=== PATIENT | male | born 1990 | race Hispanic/Latino ===

== ENCOUNTER 2023-12-23 17:52 | Inpatient (IN) | payer OTHER ==
[~2023-12-23] VITALS: Ht 172.7 cm; Wt 55.0 kg
[2023-12-23 18:26] LABS: APPEARANCE,URINE CLEAR (CLEAR); BILIRUBIN,URINE NEGATIVE (NEGATIVE); GLUCOSE, URINE (UA) >=1000 mg/dL (NEGATIVE); KETONES,URINE >=80 mg/dL (NEGATIVE); LEUKOCYTE ESTERASE ,URINE 250 Leu/uL (NEGATIVE); NITRATE,URINE NEGATIVE (NEGATIVE); OCCULT BLOOD,URINE NEGATIVE (NEGATIVE); PH,URINE 5.5 (5.0-8.0); PROTEIN,URINE NEGATIVE (NEGATIVE); UROBILINOGEN,URINE 0.2 mg/dL (0.2-1.0)
[2023-12-23 18:27] LABS: ADD UA MICROSCOPIC YES; COLOR,URINE LIGHT-YELLOW (YELLOW)
[2023-12-23 18:33] LABS: BACTERIA,URINE FEW /HPF (None Seen); MUCUS,URINE RARE LPF (None Seen); SQUAMOUS EPITHELIAL CELL,UR RARE /HPF (0-2)
[2023-12-23 18:37] LABS: BASOPHILS # (AUTO) 0.06 K/uL (0.00-0.20); BASOPHILS % (AUTO) 1.2 % (0.0-5.0); EOSINOPHILS # (AUTO) 0.04 K/uL (0.00-0.70); EOSINOPHILS % (AUTO) 0.8 % (0.0-8.0); HEMATOCRIT 49.6 % (42-54); IMMATURE GRANULOCYTE ABSOLUTE 0.02 K/uL (0-1); LYMPHOCYTES # (AUTO) 1.7 K/uL (1.0-4.8); LYMPHOCYTES % (AUTO) 32.7 % (21.0-51.0); MEAN CORPUSCULAR HEMOGLOBIN 31.4 pg (27.0-33.0); MEAN CORPUSCULAR HGB CONC 33.5 g/dL (32.0-36.0); MEAN CORPUSCULAR VOLUME 93.8 fL (79-99); MONOCYTES # (AUTO) 0.4 K/uL (0.1-1.0); MONOCYTES % (AUTO) 8.7 % (3.0-13.0); NEUTROPHILS # (AUTO) 2.8 K/uL (1.8-7.7); NEUTROPHILS % (AUTO) 56.2 % (40.0-77.0); PLATELET COUNT (AUTO) 243 K/uL (130-400); RED BLOOD CELL COUNT(AUTO) 5.29 MIL/uL (4.50-6.20); RED CELL DISTRIBUTION WIDTH 13.4 % (11.0-15.5)
[2023-12-23] MEDS: INSULIN HUMULIN R 100 UNIT/ML 3ML IV ONE (18:43)
[2023-12-23] MEDS: 0.9%NACL 1000ML 1,000 ML IV ONE (18:44)
[2023-12-23 19:06] LABS: CREATININE 0.7 mg/dL (0.5-1.3); POTASSIUM 4.4 mmol/L (3.5-5.1)
[2023-12-23 19:25] LABS: ABG OXYGEN SATURATION 44.4 % (95.0-99.0); BASE EXCESS,VENOUS BLOOD GAS -2.2 (-2.0-3.0); HCO3,VENOUS BLOOD GAS 23.7 (21.0-28.0); PCO2,VENOUS BLOOD GAS 45 (32-45); PH,VENOUS BLOOD GAS 7.343 (7.350-7.450); PO2,VENOUS BLOOD GAS 26.1 mmHg (35.0-45.0); VENT MODE, BG ROOMAIR (ROOM AIR)
[2023-12-23] MEDS: CEFTRIAXONE 1G VIAL IVPB ONE (19:51)
[2023-12-23] MEDS ORDERED: CEFTRIAXONE 1G VIAL 1 GM in 0.9%NACL 50ML 50 ML IV SCH (21:00)
[2023-12-23] MEDS ORDERED: ONDANSETRON 4MG INJ IV PRN (21:00)
[2023-12-23] MEDS: INSULIN REGULAR, HUMAN 3ML 100 UNIT in 0.9%NACL 100ML 100 ML IV SCH (21:00)
[2023-12-23] MEDS: CEFTRIAXONE 1G VIAL IVPB SCH (21:30)
[2023-12-23 21:32] LABS: CREATININE 0.5 mg/dL (0.5-1.3); POTASSIUM 3.8 mmol/L (3.5-5.1)
[2023-12-23] MEDS: FAMOTIDINE 20MG VIAL IV SCH (21:33)
[2023-12-23] MEDS: 0.9%NACL 1000ML 1,000 ML IV SCH (21:34)
[2023-12-23] MEDS: POTASSIUM CHLORIDE 10MEQ/100ML 100 ML IV PRN (21:38)
[2023-12-23] MEDS: D5W-1/2 NS/20MEQ KCL 1,000 ML IV SCH (21:53)
[2023-12-24] VITALS (11 sets, daily range): BP systolic 101–130; BP diastolic 63–88; PULSE 66–92; RESP 12–20; O2SAT 100
[2023-12-24 02:14] LABS: CREATININE 0.3 mg/dL (0.5-1.3); MAGNESIUM 1.5 mg/dL (1.80-2.40); POTASSIUM 3.4 mmol/L (3.5-5.1)
[2023-12-24] MEDS: INSULIN GLARGINE 100 UNITS/ML 10 ML VIAL SQ STA (03:08)
[2023-12-24] MEDS: MAGNESIUM 2GM PREMIX 50ML 50 ML IV SCH (03:20)
[2023-12-24] MEDS: POTASSIUM CHLORIDE 10% ELIXIR 20 MEQ/15 ML UDCUP PO PRN ×2 (03:20→05:34)
[2023-12-24] MEDS ORDERED: KCL 20 MEQ ERTAB PO PRN ×2 (03:30→04:00)
[2023-12-24] MEDS: INSULIN GLARGINE 100 UNITS/ML 10 ML VIAL SQ ONE ×2 (05:33→16:41)
[2023-12-24] MEDS: INSULIN HUMULIN R 100 UNIT/ML 3ML SQ SCH (06:28)
[2023-12-24] MEDS ORDERED: INSULIN HUMULIN R 100 UNIT/ML 3ML SQ SCH (07:30)
[2023-12-24 09:37] LABS: CREATININE 0.4 mg/dL (0.5-1.3); POTASSIUM 3.7 mmol/L (3.5-5.1)
[2023-12-24] MEDS ORDERED: VANCOMYCIN PROTOCOL PER PHARMACY IV SCH (18:00)
[2023-12-24] MEDS: VANCOMYCIN 1.5 GM/250 ML BAG 250 ML IV ONE (18:12)
[2023-12-25] VITALS (8 sets, daily range): BP systolic 101–112; BP diastolic 71–81; PULSE 68–87; RESP 16–17; O2SAT 100
[2023-12-25] MEDS: VANCOMYCIN 1G/250ML KIT 250 ML IV SCH (05:58)
[2023-12-25] MEDS: INSULIN HUMULIN R 100 UNIT/ML 3ML SQ SCH ×3 (06:36→17:00)
[2023-12-25] MEDS: INSULIN GLARGINE 100 UNITS/ML 10 ML VIAL SQ SCH (07:58)
[2023-12-25] MEDS: VANCOMYCIN 1.5 GM/250 ML BAG 250 ML IV SCH (22:29)
[2023-12-26 00:32] VITALS: O2SAT 100
[2023-12-26 03:00] VITALS: BP 94/68; PULSE 71; RESP 16
[2023-12-26 06:09] LABS: BASOPHILS # (AUTO) 0.06 K/uL (0.00-0.20); EOSINOPHILS # (AUTO) 0.08 K/uL (0.00-0.70); EOSINOPHILS % (AUTO) 1.3 % (0.0-8.0); HEMATOCRIT 40.8 % (42-54); IMMATURE GRANULOCYTE ABSOLUTE 0.03 K/uL (0-1); LYMPHOCYTES # (AUTO) 2.8 K/uL (1.0-4.8); LYMPHOCYTES % (AUTO) 45.1 % (21.0-51.0); MEAN CORPUSCULAR HEMOGLOBIN 30.2 pg (27.0-33.0); MEAN CORPUSCULAR HGB CONC 32.6 g/dL (32.0-36.0); MEAN CORPUSCULAR VOLUME 92.7 fL (79-99); MONOCYTES # (AUTO) 0.5 K/uL (0.1-1.0); MONOCYTES % (AUTO) 7.8 % (3.0-13.0); NEUTROPHILS # (AUTO) 2.7 K/uL (1.8-7.7); NEUTROPHILS % (AUTO) 44.3 % (40.0-77.0); PLATELET COUNT (AUTO) 215 K/uL (130-400); RED CELL DISTRIBUTION WIDTH 13.5 % (11.0-15.5); WHITE BLOOD COUNT (AUTO) 6.2 K/uL (4.8-10.8)
[2023-12-26 06:21] LABS: CREATININE 0.3 mg/dL (0.5-1.3); MAGNESIUM 1.7 mg/dL (1.80-2.40); PHOSPHORUS 5.1 mg/dL (2.5-4.9); POTASSIUM 3.6 mmol/L (3.5-5.1)
[2023-12-26 08:00] VITALS: BP 111/77; PULSE 80; RESP 18; O2SAT 100
[2023-12-26 12:00] VITALS: BP 115/77; PULSE 95; RESP 18
[2023-12-26] MEDS ORDERED: HUM100IN SQ ×2 (12:19)
[2023-12-26 16:00] VITALS: BP 104/70; PULSE 79; RESP 18
[2023-12-27] MEDS ORDERED: HUM100IN SQ ×2 (21:40)
== END 2023-12-26 18:10 | DRG 638 ==
LOC: EDH 17:52 → EEVIPCON 17:53 → EDHIP 17:53 → 2BH 22:31 → 3AH 12-25 00:09
PROVIDERS: ADMIT Internal Medicine; ATTEND Internal Medicine
DX: E11.10 Type 2 diabetes mellitus with ketoacidosis without coma (principal); N39.0 Urinary tract infection, site not specified; E78.00 Pure hypercholesterolemia, unspecified; F12.90 Cannabis use, unspecified, uncomplicated; F17.200 Nicotine dependence, unspecified, uncomplicated; F14.90 Cocaine use, unspecified, uncomplicated; I10 Essential (primary) hypertension; Z91.198 Patient's noncompliance with other medical treatment and regimen for other reason; Z79.899 Other long term (current) drug therapy
CPT/HCPCS: 36415; 36600; 80048; 80202; 81001; 82010; 82803; 82948; 83036; 83605; 83735; 84100; 85025; 87040; 87077; 87088; 87186; 87486; 87797; G0378; J0696; J1815; J3370; J3475; J3480; J3490; J7030

== ENCOUNTER 2023-12-27 19:26 | Emergency (ER) | payer OTHER ==
[~2023-12-27] VITALS: Ht 172.7 cm; Wt 57.2 kg
[~2023-12-27 19:26] MED LIST: HUM100IN SQ
[2023-12-27] MEDS ORDERED: HUM100IN SQ ×2 (21:40)
[2023-12-27 21:52] VITALS: BP 115/78; PULSE 80; RESP 16; O2SAT 99
[2023-12-27] MEDS: INSULIN HUMULIN 70/30 100 UNIT/ML 3ML SQ SCH (22:24)
== END 2023-12-27 22:28 | disposition home or self-care (01) ==
LOC: EDH 19:26
DX: E10.65 Type 1 diabetes mellitus with hyperglycemia (principal); I10 Essential (primary) hypertension; E78.00 Pure hypercholesterolemia, unspecified; F17.200 Nicotine dependence, unspecified, uncomplicated; Z79.899 Other long term (current) drug therapy; Z98.890 Other specified postprocedural states; Z79.4 Long term (current) use of insulin
CPT/HCPCS: 99283; 82948; 96372; J1815